=== PATIENT | female | born 2000 | race Caucasian/White ===

== ENCOUNTER 2023-08-08 14:45 | Outpatient (CLI) | payer MEDICAID ==
--- NOTE | 2023-08-08 18:06 | Ultrasound Report ---
PROCEDURE: OB Anatomy Scan INDICATIONS: SUPERVISION OF OUTSIDE/PRIOR DATING DATA: Last menstrual period (LMP): 01/05/2023. LMP-based estimated date of delivery (AUGUSTIN): 10/12/2023. First dating scan (date and location): 08/08/2023. Estimated date of delivery (AUGUSTIN) from first dating scan: 03/13/2024. TECHNIQUE: Real-time scanning was performed of the fetus, with image documentation and biometric measurements. Endovaginal scanning: Not performed. COMPARISON: None. FINDINGS: General: A single living intrauterine gestation is present. Presentation: Vertex Placenta: Placental position is fundal, without previa. Amniotic fluid index: 11.1 cm, within normal limits for gestational age. heart rate: 136 beats per minute. Maternal cervical canal: 3.2 cm long; normal length is 2.5 cm or more. There is an incidentally noted 2.6 x 1.8 x 1.5 cm left simple ovarian cyst. biometrics: Biparietal diameter: 7.24 cm, 29 weeks, 0 days, 4.5% Head circumference: 28.36 cm, 31 weeks, 1 day, 24.5% Abdominal circumference: 26.98 cm, 31 weeks, 1 day, 57.3% Femur length: 6.11 cm, 31 weeks, 5 days, 64.7% Estimated gestational age from initial scan: 30 weeks, 5 days Composite gestational age from present scan: 30 weeks, 6 days Estimated weight and percentile: 1702 g, 51.3% Measurement variability in biometric dating: +/- 10 days from 12-20 weeks gestation, +/- 2 weeks from 20-30 weeks gestation, +/- 3 weeks at 30 weeks gestation or later. Anatomic survey: Neuro: Ventricles are normal at less than 10 mm. Cisterna magna is normal at 3-11 mm. Cerebellum i s normal in size and morphology. Nuchal skin fold: Normal at less than 6 mm between 14 and 20 weeks gestational age. Face: Nose and lips, facial profile are normal. Spine: No evidence for spina bifida. Heart: 4-chambered heart is present, with normal right ventricular outflow tract. The left ventricul ar outflow tract was not imaged. Diaphragm: Diaphragm is intact. Stomach: Left-sided stomach is present. Kidneys: No hydronephrosis. Normal is less than 5 mm in 2nd trimester, less than 7 mm in 3rd trimester. Cord: 3 vessel cord has orthotopic insertion. Bladder: Normal in size. Extremities: All 4 extremities are visualized. IMPRESSION: 1. Single live intrauterine gestation with a composite gestational age of 30 weeks, 6 days which is c oncordant with dates LMP. 2. No sonographic anatomic abnormalities. Of note, the left ventricular outflow tract was not v isualized. Reviewed by: Alanna Willingham MD on 08/08/2023 6:05 PM PST Approved by: Alanna Willingham MD on 08/08/2023 6:05 PM PST Station ID: [id number]
== END 2023-08-08 14:46 | disposition home or self-care (01) ==
LOC: DI 14:45
PROVIDERS: ATTEND Nurse Practitioner
DX: Z34.03 Encounter for supervision of normal first pregnancy, third trimester (principal)

== ENCOUNTER 2023-09-18 16:08 | Outpatient (CLI) | payer MEDICAID ==
[2023-09-18 17:34] LABS: HCT - HEMATOCRIT 40.1 % (37.0-47.0); HGB - HEMOGLOBIN 13.4 g/dL (12.0-16.0); MEAN CORPUSCULAR HGB CONC 33.4 g/dL (32.0-36.0); MEAN CORPUSCULAR VOLUME 86.8 fL (81.0-99.0); MEAN PLATELET VOLUME 11.8 fL (7.9-10.8); RED BLOOD COUNT 4.62 10^6/uL (4.20-5.40); RED CELL DISTRIBUTION WIDTH 13.7 % (12.0-15.0)
[2023-09-18 18:04] LABS: THYROID STIMULATING HORMONE 0.96 uIU/mL (0.34-5.60)
[2023-09-19 03:10] LABS: HCV AB Non Reactive (Non Reactive)
== END 2023-09-18 16:09 | disposition home or self-care (01) ==
LOC: LAB 16:08
PROVIDERS: ATTEND Nurse Practitioner
DX: Z34.00 Encounter for supervision of normal first pregnancy, unspecified trimester (principal); Z36.85 Encounter for antenatal screening for Streptococcus B; Z36.89 Encounter for other specified antenatal screening
CPT/HCPCS: 36415; 82950; 84443; 85027; 86787; 86803; 86850; 86870; 86880; 86900; 86901; 87797

== ENCOUNTER 2023-10-04 13:09 | Outpatient (CLI) | payer MEDICAID ==
--- NOTE | 2023-10-04 16:27 | Ultrasound Report ---
PROCEDURE: OB Follow up INDICATIONS: UTERINE SIZE-DATE DISCREPANCY OUTSIDE/PRIOR DATING DATA: Last menstrual period (LMP): 01/05/2023. LMP-based estimated date of delivery (AUGUSTIN): 10/12/2023. First dating scan (date and location): 08/08/2023. Estimated date of delivery (AUGUSTIN) from first dating scan: 10/12/2023. The below data below was generated using the working AUGUSTIN of 10/12/2023 TECHNIQUE: Real-time scanning was performed of the fetus, with image documentation and biometric measurements. Endovaginal scanning: Not performed. COMPARISON: 08/08/2023 FINDINGS: General: A single living intrauterine gestation is present. Presentation: Vertex Placenta: Placental position is fundal, without previa. Amniotic fluid index: 7.9 cm, within normal limits for gestational age. heart rate: 137 beats per minute. Maternal cervical canal: Not evaluated. biometrics: Biparietal diameter: 8.0 cm, 32 weeks, 1 day, less than 0.5 %. Head circumference: 31.0 cm, 34 weeks, 5 days, less than 0.5 %. Abdominal circumference: 33.7 cm, 37 weeks, 4 days. 35% Femur length: 7.4 cm, 38 weeks, 0 day, 36% Estimated gestational age from initial scan: 38 weeks, 6 days Composite gestational age from present scan: 35 weeks, 4 days Estimated weight and percentile: 3006 g, 18 % Measurement variability in biometric dating: +/- 10 days from 12-20 weeks gestation, +/- 2 weeks from 20-30 weeks gestation, +/- 3 weeks at 30 weeks gestation or more. Other: Not applicable. IMPRESSION: 1. Single live intrauterine gestation with fetus in vertex presentation. heart rate is 137 bpm. Normal amount of amniotic fluid. AIDA equals 7.9 cm. 2. Estimated weight is at 18% with biparietal diameter head circumference size both measu ring less than 0.5%. Reviewed by: Josep Park MD on 10/04/2023 4:26 PM PDT Approved by: Josep Park MD on 10/04/2023 4:26 PM PDT Station ID: [id number]
== END 2023-10-04 13:10 | disposition home or self-care (01) ==
LOC: DI 13:09
PROVIDERS: ATTEND Nurse Practitioner
DX: O26.843 Uterine size-date discrepancy, third trimester (principal); Z3A.35 35 weeks gestation of pregnancy

== ENCOUNTER 2023-10-12 12:54 | Inpatient (IN) | payer MEDICAID ==
[2023-10-12 13:56] LABS: RUPTURE OF MEMBRANES PLUS POSITIVE (NEGATIVE)
--- NOTE | 2023-10-12 14:27 | HISTORY & PHYSICAL EXAMINATION ---
Admit History - Visit Reason Visit Reason: Contractions - : 1 Parity: 0 - Mother's Labs Mother's Blood Type: positive: B Mother's RH: positive: Negative GBS: positive: Group B Step Negative Rubella Status: positive: Immune - Other Maternal History Other Maternal History: HPI: Patient is a 23-year-old G1, P0 at 40 weeks 0 days gestation presenting today with leaking fluid and contractions. Contractions started this morning and gradually picked up until her water broke between 9 and 10. She has a positive AmniSure today. Contraction every few minutes. She has good movement. No HOLT/BV or RUQP. No vaginal bleeding. Denies nausea and vomiting. Denies urinary urgency or dysuria. All other symptoms reviewed and were negative except per HPI. Course LMP: 01/05/23 AUGUSTIN by LMP: 10/12/23 US:04/06/23 c/w dates Final AUGUSTIN: 10/12/23 Elevated blood pressure without diagnosis of hypertension -First elevated blood pressure 09/25/2023 at 37 weeks. CBC, CMP, protein creatinine ratio ordered. Discussed induction for gestational hypertension if elevated next visit. Lagging Biometry: -EFW 18%. BPD/HC <0.5%. Discussed risks/potential causes. Declining induction despite risks -Referral to MFM, but likely too late -NST/BPP ordered Pre- Weight:115 BMI: 19.21 Blood type: B- RHOGAM received 07/28/2023- Antibody screen done after Rhogam administration Antibody: neg CBC: PLT 179 HCT 38.7 HGB 13.1 RUB:imm VZV:immune HBsAg: Neg HepC: NR RPR/AB-EIA:NR HIV:neg PAP:04/06/2023 @ Initial OB in [place]. Requested GC/CT:neg HSV: Denies self/partner Genetic testing:CF- negative 05/08 Covid: FAS:08/08/23 - no report Margarette. Incomplete report in [facility]. will ask DI to upload full report. 09/23 AUGUSTIN incorrect Placenta: fundal/no previa Cord:3VC AIDA: normal EFW: 51.3% F/U US ordered 09/23 for LVOT 50gm OGCT: 120 3HR GTT: TDAP:07/20 Breast Pump:07/20 Antibody screen:positive probable passive anti-D due to RHIG administration on 07/28 3rd trimester H/H 13.4/40.1 PLT 194 GBS: Negative 09/18 Delivery plan: anticipate with epidural Contraception: unsure, considering POP PMH Denies pertinent medical history PSH Appendectomy OB History G1, P0 SH Denies tobacco, alcohol, drugs Family History Noncontributory Allergies No known drug allergies Medications Sertraline 50 mg daily Physical exam: General: Alert, oriented, no acute distress Head: Normal cephalic atraumatic Eyes: PERRLA, extraocular motions intact. Respiratory: Normal rate of respiration. No accessory muscle use, normal respiratory effort. Cardiovascular: Regular rate and rhythm Abdomen: Gravid, nontender, nondistended Extremities: Normal range of motion Neuro: Oriented x3. Normal movements Psych: Appropriate mood and affect. Normal judgment and insight SVE: 3/50/-2 FHT: 135 beats per baseline, moderate variability, accelerations present, no decelerations. Category 1. [place]: 2 to 4 minutes Plan 23-year-old G1, P0 at 40 weeks 0 days gestation admitted for labor 1. Term labor/SROM -Admit to L&D, admit labs, epidural at patient's request 2. Lagging biometry -Overall EFW of 18%, BPD/HC less than 0.5%, abdominal circumference 35%. 3. Elevated blood pressure without diagnosis of hypertension -Single isolated elevated blood pressure at 37 weeks gestation 4. Rh- -Evaluation after - HPI Vital Signs Temperature 98.1 F 10/12/23 13:35 Heart Rate 90 10/12/23 13:35 Respiratory Rate 17 10/12/23 13:35 Blood Pressure 118/72 10/12/23 13:35 Temperature 98.1 F 10/12/23 13:35 Heart Rate 90 10/12/23 13:35 Respiratory Rate 17 10/12/23 13:35 Blood Pressure 118/72 10/12/23 13:35 O2 Saturation If not protocol: Oxygen Flow, liters/minute Meds/Allgy - Home Medications Home Medications: Ambulatory Orders Medication Instructions Recorded Confirmed Sertraline [Zoloft] 50 mg PO DAILY 10/12/23 10/12/23 - Allergies Allergies/Adverse Reactions: Allergies Allergy/AdvReac Type Severity Reaction Status Date / Time No Known Drug Allergies Allergy Verified 10/12/23 17:14 Physical - Abdominal Exam Vital Signs: Temp Pulse Resp BP Pulse Ox O2 Flow Rate 98.1 F 90 17 118/72 10/12/23 13:35 10/12/23 13:35 10/12/23 13:35 10/12/23 13:35 Plan for Labor - Plan For Labor I expect patient to be DC'd or transferred within 96 hours.: Yes
[2023-10-12 15:28] LABS: BASOPHILS # (AUTO) 0.1 10^3/uL (0.0-0.1); BASOPHILS % (AUTO) 0.3 %; EOSINOPHILS # (AUTO) 0.1 10^3/uL (0.0-0.7); EOSINOPHILS % (AUTO) 0.5 %; HGB - HEMOGLOBIN 13.7 g/dL (12.0-16.0); LYMPHOCYTES # (AUTO) 2.2 10^3/uL (1.5-3.5); LYMPHOCYTES % (AUTO) 11.4 %; MEAN CORPUSCULAR HEMOGLOBIN 29.1 pg (27.0-31.0); MEAN CORPUSCULAR HGB CONC 34.3 g/dL (32.0-36.0); MEAN CORPUSCULAR VOLUME 85.1 fL (81.0-99.0); MEAN PLATELET VOLUME 12.4 fL (7.9-10.8); MONOCYTES # (AUTO) 1.1 10^3/uL (0.0-1.0); MONOCYTES % (AUTO) 5.7 %; NEUTROPHILS # (AUTO) 15.5 10^3/uL (1.5-6.6); NEUTROPHILS % (AUTO) 81.2 %; PLT - PLATELET COUNT 177 10^3/uL (130-450); RED CELL DISTRIBUTION WIDTH 13.5 % (12.0-15.0); WHITE BLOOD COUNT 19.1 x10^3/uL (4.8-10.8)
[2023-10-12] MEDS ORDERED: miSOPROStoL 200 MCG TABLET ONE (16:40)
[2023-10-12] MEDS ORDERED: OXYTOCIN 10 UNIT/ML VIAL ONE (16:40)
[2023-10-12] MEDS ORDERED: LACTATED RINGERS 1,000 ML ONE (16:41)
[2023-10-12] MEDS ORDERED: lidocaine 1% 20 ML MDV ID PRN (16:48)
[2023-10-12] MEDS ORDERED: TRANEXAMIC ACID IN NACL 1,000 MG/100 ML BAG IV PRN (16:48)
[2023-10-12] MEDS ORDERED: OXYTOCIN 10 UNIT/ML VIAL IM PRN (16:48)
[2023-10-12] MEDS ORDERED: hydrALAZINE INJ 20 MG/ML VIAL IVP PRN ×2 (16:48)
[2023-10-12] MEDS ORDERED: LACTATED RINGERS 1,000 ML IV PRN (16:48)
[2023-10-12] MEDS ORDERED: miSOPROStoL 200 MCG TABLET BC PRN (16:48)
[2023-10-12] MEDS ORDERED: TERBUTALINE 1 MG/ML VIAL SUBQ PRN (16:48)
[2023-10-12] MEDS ORDERED: LABETALOL 20 MG/4 ML SYRINGE IVP PRN ×3 (16:48)
[2023-10-12] MEDS ORDERED: ACETAMINOPHEN 500 MG TABLET PO PRN (16:48)
[2023-10-12] MEDS ORDERED: miSOPROStoL 200 MCG TABLET PR PRN (16:48)
[2023-10-12] MEDS ORDERED: SODIUM CHLORIDE FLUSH 0.9% 10 ML SYRINGE IVP PRN (16:48)
[2023-10-12] MEDS ORDERED: ONDANSETRON ODT 4 MG TABLET TL PRN (16:48)
[2023-10-12] MEDS ORDERED: METHYLERGONOVINE 0.2 MG/ML VIAL IM PRN (16:48)
[2023-10-12] MEDS ORDERED: NIFEdipine 10 MG CAPSULE PO PRN (16:48)
[2023-10-12] MEDS ORDERED: fentaNYL 100 MCG/2 ML VIAL IVP PRN (16:48)
[2023-10-12] MEDS: LACTATED RINGERS 1,000 ML IV SCH (16:49)
[2023-10-12] MEDS ORDERED: LIDOCAINE 2%-EPI 1:100000 20 ML MDV ONE (16:57)
[2023-10-12] MEDS ORDERED: ROPIVACAINE 0.2% 200 MG/100 ML BAG EP ONE (16:58)
[2023-10-12] MEDS ORDERED: SODIUM CHLORIDE FLUSH 0.9% 10 ML SYRINGE IVP SCH (17:00)
[2023-10-12] MEDS ORDERED: ePHEDrine 50 MG/ML VIAL IVP PRN (17:25)
[2023-10-12] MEDS ORDERED: METOCLOPRAMIDE 10 MG/2 ML VIAL IVP PRN (17:25)
[2023-10-12] MEDS ORDERED: LACTATED RINGERS 500 ML IV ONE (17:25)
[2023-10-12] MEDS ORDERED: diphenhydrAMINE INJ 50 MG/ML VIAL IVP PRN (17:25)
[2023-10-12] MEDS ORDERED: ONDANSETRON 4 MG/2 ML VIAL IVP PRN ×2 (17:25→21:17)
[2023-10-12] MEDS ORDERED: ROPIVACAINE 0.2% 200 MG/100 ML BAG EP PRN (17:25)
[2023-10-12] MEDS ORDERED: NALOXONE 0.4 MG/ML VIAL IVP PRN (17:25)
[2023-10-12] MEDS ORDERED: NALBUPHINE 10 MG/ML AMP IVP PRN (17:25)
--- NOTE | 2023-10-12 17:30 | ANESTHESIA ---
Pre-Anesthesia VS, & Labs - Diagnosis labor pain - Procedure labor epidural Vital Signs: Temp Pulse Resp BP Pulse Ox O2 Flow Rate 36.8 C 90 17 118/72 10/12/23 15:10 10/12/23 13:35 10/12/23 13:35 10/12/23 13:35 Height: 5 ft 5 in Weight (kg): 64.864 kg Body Mass Index: 23.8 BMI Classification: Normal - NPO Other (last meal 1630) - Is Patient ?: Yes - Lab Results Current Lab Results: Laboratory Tests 10/12/23 15:15: WBC 19.1 H, RBC 4.70, Hgb 13.7, Hct 40.0, MCV 85.1, MCH 29.1, MCHC 34.3, RDW 13.5, Plt Count 177, MPV 12.4 H, Neut # (Auto) 15.5 H, Lymph # (Auto) 2.2, Wilson # (Auto) 1.1 H, Eos # (Auto) 0.1, Baso # (Auto) 0.1, Absolute Nucleated RBC 0.00, Nucleated RBC % 0.0 10/12/23 15:15: Blood Type B NEGATIVE, Antibody Screen POSITIVE Fish Bones: 10/12/23 15:15 Home Medications and Allergies Home Medications: Ambulatory Orders Sertraline [Zoloft] 50 mg PO DAILY 10/12/23 Active Medications Acetaminophen (Acetaminophen 500 Mg Tablet) 1,000 mg PO Q6HR PRN PRN Reason: Pain or Fever > 38C (100.4F) Fentanyl (Fentanyl 100 Mcg/2 Ml Vial) 50 mcg IVP Q1H PRN PRN Reason: Severe Pain (score 7-10) Hydralazine HCl (Hydralazine Inj 20 Mg/Ml Vial) 10 mg IVP .ONCE PRN; Protocol PRN Reason: SBP> or= 160 OR DBP> or= 110 Hydralazine HCl (Hydralazine Inj 20 Mg/Ml Vial) 5 - 10 mg IVP Q20M PRN; Protocol PRN Reason: SBP> or= 160 OR DBP> or= 110 Oxytocin/Sodium Chloride (Pitocin/Sodium Chloride) 500 mls @ 999 mls/hr IV PRN PRN; Protocol PRN Reason: POST- HEMORR PREVENTION Tranexamic Acid (Tranexamic 1,000 Mg/100ml-Nacl) 1,000 mg in 100 mls @ 600 mls/hr IV Q30M PRN PRN Reason: EBL >1200mL and within 3hr Lactated Ringer's (Lr) 1,000 mls @ 125 mls/hr IV .Q8H SAJAN Last Admin: 10/12/23 16:49 Dose: 999 mls/hr Lactated Ringer's (Lr) 1,000 mls @ 999 mls/hr IV PRN PRN PRN Reason: PER PHYSICIAN ORDER Labetalol HCl (Labetalol 20 Mg/4 Ml Syringe) 20 mg IVP .ONCE PRN; Protocol PRN Reason: SBP> or= 160 OR DBP> or= 110 Labetalol HCl (Labetalol 20 Mg/4 Ml Syringe) 20 - 80 mg IVP Q10M PRN; Protocol PRN Reason: SBP> or= 160 OR DBP> or= 110 Labetalol HCl (Labetalol 20 Mg/4 Ml Syringe) 20 - 40 mg IVP Q10M PRN; Protocol PRN Reason: SBP> or= 160 OR DBP> or= 110 Lidocaine HCl (Lidocaine 1% 20 Ml Mdv) 20 ml ID .ONCE PRN PRN Reason: PERINEAL REPAIR Stop: 10/15/23 16:51 Methylergonovine Maleate (Methylergonovine 0.2 Mg/Ml Vial) 0.2 mg IM .ONCE PRN PRN Reason: Hemorrhage Metoclopramide HCl (Metoclopramide 10 Mg/2 Ml Vial) 10 mg IVP Q6HR PRN PRN Reason: Nausea / Vomiting Misoprostol (Misoprostol 200 Mcg Tablet) 600 mcg BC .ONCE PRN PRN Reason: Hemorrhage Misoprostol (Misoprostol 200 Mcg Tablet) 800 mcg [place] .ONCE PRN PRN Reason: Hemorrhage Nifedipine (Nifedipine 10 Mg Capsule) 10 - 20 mg PO Q20M PRN; Protocol PRN Reason: SBP> or= 160 OR DBP> or= 110 Ondansetron HCl (Ondansetron Odt 4 Mg Tablet) 4 mg TL Q6HR PRN PRN Reason: Nausea / Vomiting Ondansetron HCl (Ondansetron 4 Mg/2 Ml Vial) 4 mg IVP Q6HR PRN PRN Reason: Nausea / Vomiting Oxytocin (Oxytocin 10 Unit/Ml Vial) 10 unit IM .ONCE PRN PRN Reason: Step One if no IV access. Sertraline HCl (Sertraline 50 Mg Tablet) 50 mg PO DAILY SAJAN Sodium Chloride (Sodium Chloride Flush 0.9% 10 Ml Syringe) 10 ml IVP Q8H SAJAN Sodium Chloride (Sodium Chloride Flush 0.9% 10 Ml Syringe) 10 ml IVP PRN PRN PRN Reason: NEEDED PER PROVIDER ORDERS Terbutaline Sulfate (Terbutaline 1 Mg/Ml Vial) 0.25 mg SUBQ .ONCE PRN PRN Reason: Tachystole Sertraline [Zoloft] 50 mg PO DAILY 10/12/23 Allergies/Adverse Reactions: Allergies Allergy/AdvReac Type Severity Reaction Status Date / Time No Known Drug Allergies Allergy Verified 10/12/23 17:14 Anes History & Medical History - Anesthetic History Anesthesia Complications: reports: No previous complications Family history of Anesthesia Complications: Denies Family history of Malignant Hyperthermia: Denies - Medical History Cardiovascular: reports: None Pulmonary: reports: None Gastrointestinal: reports: None Urinary: reports: None Neuro: reports: None Musculoskeletal: reports: None Endocrine/Autoimmune: reports: None Smoking Status: Never smoker Psychosocial: reports: No issues indicated - Obstetrical History : 1 Parity: 0 Exam General: Alert, Oriented x3, Cooperative Dental: WNL Mouth Openin Fingerbreadth Neck Mobility: Normal Mallampati classification: I Thyromental Distance: 4-6 cm Respiratory: Lungs clear Cardiovascular: Regular rate Plan Anesthesia Type: Epidural Consent for Procedure(s) Verified and Reviewed: Yes Code Status: Attempt Resuscitation ASA classification: 2-Mild systemic disease Is this case an emergency?: No
[2023-10-12] MEDS: OXYTOCIN/SODIUM CHLORIDE 500 ML IV PRN (20:22)
[2023-10-12] MEDS ORDERED: CALCIUM CARBONATE CHEW 500 MG TABLET PO PRN (21:17)
[2023-10-12] MEDS ORDERED: SIMETHICONE CHEW 80 MG TABLET PO PRN (21:17)
[2023-10-12] MEDS ORDERED: DOCUSATE SODIUM 100 MG CAPSULE PO PRN (21:17)
--- NOTE | 2023-10-12 21:20 | DELIVERY NOTE ---
Delivery Note - Labor Labor: positive: Spontaneous - Delivery Method Delivery Method: positive: Spontaneous vaginal delivery - Presentation Presentation: positive: Vertex - Nuchal Cord Nuchal Cord: positive: Present, Reduced - Anesthetic Anesthetic Type: - Amniotic Fluid Description Amniotic Fluid Description: positive: Clear - Laceration Laceration: positive: 1st degree, Labial (Bilateral) - Suture Suture Type: positive: Vicryl (3-0), Chromic (3-0) - Delivery Outcome Delivery Outcome: positive: Livebirth - [place]: positive: Placed in direct skin contact with mother, [place] used sex: positive: Female - Cord Cord: positive: 3 vessels - Placenta Placenta: positive: Intact - Estimated Blood Loss Estimated Blood Loss (in cc): 275 - Post Delivery Events Post Delivery Events: positive: No post delivery events - Delivery Comments (Free Text/Narrative) Delivery Comments (Free Text/Narrative): Preoperative Diagnoses Term labor/SROM 40 weeks gestation Lagging biometry Rh- Elevated blood pressure without diagnosis of hypertension Postoperative Diagnoses Same Status post continuous vaginal delivery Delivery of live matthews Delivery Summary: Patient was placed in the dorsal lithotomy position. Upon maternal pushing the head was delivered atraumatically followed by the anterior shoulder, posterior shoulder, then the remainder of the infant's body. A female was delivered with APGARS of 8 at 1 minute and 9 at 5 minutes. The infant was placed on its mother's chest . After the cord finished pulsating, the umbilical cord was clamped times two and cut. The placenta delivered intact with three vessel cord. Placenta [was not] sent to pathology. Thirty units of Pitocin were added to the IV fluid and allowed to run freely. Uterine massage was performed until uterus was deemed firm. Upon inspection of the perineum, a small first-degree laceration was noted and repaired with a [id number] stitch of 3-0 Vicryl. She had bilateral labial lacerations repaired with small running sutures of 3-0 chromic. She did have a small hematoma on the left labia, that appeared to be not expanding. Uterus again massaged and found to be firm. Needle and sponge counts were correct. Patient was stable and allowed to recover in L&D room. Infant was stable and remained in room with mother. weight is pending at this time.
[2023-10-12] MEDS ORDERED: LACTATED RINGERS 1,000 ML IV SCH (22:00)
[2023-10-12] MEDS: ACETAMINOPHEN 500 MG TABLET PO SCH (22:15)
[2023-10-12] MEDS: IBUPROFEN 600 MG TABLET PO SCH (22:20)
[2023-10-13] MEDS ORDERED: SERTRALINE 50 MG TABLET PO SCH (09:00)
[2023-10-13 13:55] VITALS: O2SAT 97
--- NOTE | 2023-10-13 15:59 | PHARMACY PROGRESS NOTE ---
- Best Possible Medication History Admit Date and Time: 10/12/23 1653 Processed by: Nursing Medications reviewed in ED?: No Medication History completed: Yes Patient Interview: Completed As the person ultimately responsible for medication therapy, providers are able to order a medication from an existing home medication list in [facility] via the "Reconcile Routine" prior to Confirmation of that medication by support services tech. Such practice is discouraged except when the physician, in their clinical judgment, deems that a medical need exists for a medication without regard to previous use.
--- NOTE | 2023-10-13 22:47 | PROVIDER PROGRESS NOTE ---
Subjective - Prog Note Date Prog Note Date: 10/13/23 Prog Note Time: 13:00 - Subjective Pt reports feeling: Improved Subjective: feels pretty well after delivery. ped does not want her to go home so she will stay over night for baby. no complaints. Objective - Vital Signs/Intake & Output Reviewed Vital Signs: Yes Vital Signs: Vital Signs x48h Temp Pulse Resp BP 10/13/23 20:20 98.1 F 98 18 124/80 10/13/23 16:15 98.4 F 102 H 14 122/82 H Intake & Output: Intake & Output 10/10/23 10/11/23 10/12/23 10/13/23 23:59 23:59 23:59 23:59 Intake Total 1500 Output Total 400 500 Balance 1100 -500 - Objective General Appearance: positive: No acute distress Abdomen: positive: Non-tender - Lab Results Fish Bones: 10/12/23 15:15 Assessment/Plan - Problem List (1) Vaginal delivery Impression: recovering well. plan for discharge tomorrow. elevated wbc but no other signs of infection and not a high risk labor. will continue to monitor.
--- NOTE | 2023-10-14 10:31 | DISCHARGE SUMMARY ---
Discharge Summary Admit Date: 10/12/23 Discharge Date: 10/14/23 Discharging Provider: Jacklyn Adam MD Code Status: Attempt Resuscitation Condition at Discharge: Good Discharge Disposition: 01 Home, Self Care - DIAGNOSES Admission Diagnoses: presents in active labor with SROM on her due date. vaginal delivery without complications - HPI History of Present Illness: first baby. uncomplicated . Rh neg. one elevated bp 3 weeks ago then ok. - HOSPITAL COURSE Hospital Course: labored without augmentation. vaginal delivery spontaneously. routine pp care. elevated WBC but no signs of infection. feels well at time of discharge. - ALLERGIES Allergies/Adverse Reactions: Allergies Allergy/AdvReac Type Severity Reaction Status Date / Time No Known Drug Allergies Allergy Verified 10/12/23 17:14 - MEDICATIONS Home Medications: Ambulatory Orders Medication Instructions Recorded Confirmed Pnv No.95/Ferrous Fum/Folic AC 1 tab PO DAILY 10/12/23 10/13/23 [ Tablet] - PHYSICAL EXAM AT DISCHARGE General Appearance: positive: No acute distress Cardiovascular: positive: Regular rate & rhythm Abdomen: positive: Non-tender Extremities: positive: No pedal edema - LABS Result Diagrams: 10/12/23 15:15 - FOLLOW UP Follow Up: 1 weeks in clinic. - TIME SPENT Time Spent in Discharge (Minutes): 15
[2023-10-14 13:01] VITALS: BP 119/63
--- NOTE | 2023-10-14 15:22 | Labor Flowsheet ---
Labor Flowsheet Datetime Report Generated by CPN: 10/14/2023 15:22 Datetime: 10/14/2023 08:59 VITAL SIGNS NBP Sys/Ruyb/Mean (mmHg): 119 : 63 : 76 Pulse: 96 Datetime: 10/12/2023 22:30 Respirations: 15 PAIN Pain Scale: 1 Pain Presence: None/Denies Datetime: 10/12/2023 22:02 I/O Interventions: Up to BR Datetime: 10/12/2023 22:00 MEDICATIONS Pitocin (milliunits): Discontinued Datetime: 10/12/2023 21:30 Temperature (C): 36.6 Temperature Route: Oral Datetime: 10/12/2023 21:15 Pain Type: Cramping Pain Location: Abdomen Pain Relief Measures: Comfort Measures Datetime: 10/12/2023 20:55 Amniotic Fluid Odor: Normal Datetime: 10/12/2023 20:45 Epidural Procedure Other: Cath Removed; Cath Intact Datetime: 10/12/2023 20:30 Bedside Blood Glucose: 1 Datetime: 10/12/2023 20:22 Stage of : Labor Medication Comments: pit bolus started Stage 2 Comments: placenta expelled Datetime: 10/12/2023 20:16 ASSESSMENT A Monitor Mode: External US Datetime: 10/12/2023 20:09 Oxygen Method: Room Air Pushing Position: Pushing with Contractions Pushing Progress: Descent with Pushing Datetime: 10/12/2023 20:06 Membrane Status: Ruptured Membrane Comments: fore bag Datetime: 10/12/2023 20:03 COMMUNICATION Communication: Provider at Bedside Datetime: 10/12/2023 20:00 LaborFlag: Labor Datetime: 10/12/2023 19:49 Pattern: Normal: <= 5 Contractions in 10 Minutes Datetime: 10/12/2023 19:45 STAGE 2 Pushing: Urge to Push Datetime: 10/12/2023 19:31 VAGINAL EXAM Dilatation (cm): 10.0 Effacement (%): 100 Station: 0 Vaginal Bleeding: Small Cervix, Consistency: Soft Cervix, Position: Anterior Datetime: 10/12/2023 19:09 UTERINE ACTIVITY Monitor Mode: External Monitor Interventions for UA: Ranson Adjusted Frequency (min): 2-3 Quality: Strong Duration (sec): 50-80 Resting Tone (Palpate): Relaxed FHR Baseline Rate : 145 FHR Baseline Changes: No Baseline Change Variability: Moderate 6-25 bpm Accelerations: 15X15 Decelerations: None Category: Category I Datetime: 10/12/2023 18:45 Communication Comments: Dr. Contreras updated on Pt's cervical exam Datetime: 10/12/2023 18:39 Patient Position/Activity: Left Lateral Patient Care Comments: peanut ball Datetime: 10/12/2023 18:36 Exam by: RN Davina Datetime: 10/12/2023 18:09 SpO2 (%): 100 Datetime: 10/12/2023 17:22 Pain Goal: 0 Datetime: 10/12/2023 17:12 ANESTHESIA Epidural Procedure: Loading Dose Datetime: 10/12/2023 17:02 PROCEDURE TIME OUT Procedure Type: timeout Procedure Verify: Correct Patient Identity; Correct Side and Site are Marked; Accurate Procedure Co nsent Form; Agreement on Procedure to be Done; Correct Patient Position; Addressed Need to Administer Antibiotics or Fluids for Irrigation; Safety Precautions Based on Patient History or Medication Use Datetime: 10/12/2023 16:49 PATIENT CARE IV/Blood Work: IV Bolus Started Anesthesia Comments: CERTIFIED CAREGIVER at bedside
== END 2023-10-14 15:05 | disposition home or self-care (01) | DRG 807 ==
LOC: WFO 12:54 → FBP 12:58 → WFO 17:32
PROVIDERS: ADMIT Obstetrics & Gynecology; ATTEND Obstetrics & Gynecology
PROC: 10E0XZZ Delivery of Products of Conception, External Approach (ICD-10-PCS; principal; 2023-10-12)
PROC: 0HQ9XZZ Repair Perineum Skin, External Approach (ICD-10-PCS; 2023-10-12)
DX: O26.893 Other specified pregnancy related conditions, third trimester (principal); Z37.0 Single live birth; O70.0 First degree perineal laceration during delivery; Z3A.40 40 weeks gestation of pregnancy; Z67.21 Type B blood, Rh negative; O90.89 Other complications of the puerperium, not elsewhere classified; D72.829 Elevated white blood cell count, unspecified
CPT/HCPCS: 59409; 84112; 85025; 86850; 86870; 86900; 86901; 86922; 99215; A9270; J7120